=== PATIENT | male | born 2000 | race Caucasian/White ===

== ENCOUNTER 2019-12-24 06:44 | Outpatient (CLI) | payer BC, OTHER ==
[2019-12-24 10:47] LABS: #Eosinphils 0.3 thou/uL (0.0-0.7); #Lymphocytes 1.4 thou/uL (1.20-3.40); #Monocytes 0.4 thou/uL (0.11-0.59); #Neutrophils 3.5 thou/uL (1.40-6.50); %Basophils 0.4 % (0.0-1.0); %Eosinophils 5.8 % (0.0-10.0); %Lymphocytes 24.6 % (28.0-48.0); %Monocytes 7.6 % (0.0-4.0); %Neutrophils 61.6 % (31.0-61.0); Mean Corpuscular HGB CONC 32.7 g/dL (32.0-36.0); Mean Corpuscular Hemoglobin 28.8 pg (25.0-35.0); Mean Corpuscular Volume 87.8 fL (78.0-98.0); Platelet Count 175 thou/uL (130-400); White Blood Cell (WBC) Count 5.6 thou/uL (4.8-10.8)
[2019-12-24 11:15] LABS: Anion Gap 12 mmol/L (10-20); BUN (Urea Nitrogen) 18 mg/dL (8.9-20.6); Calc. Creatinine Clearance 0 mL/min (70-130); Calcium 9.5 mg/dL (7.8-10.44); Carbon Dioxide 24 mmol/L (22-29); Chloride 108 mmol/L (98-107); Estimated GFR-MDRD 78; Glucose 100 mg/dL (70-105); Sodium 140 mmol/L (136-145)
[2019-12-24 22:20] LABS: SARS-CoV-2 MS2 Positive; SARS-CoV-2 N Gene Negative; SARS-CoV-2 S Gene Negative; SARS-CoV-2 orf1ab Negative
== END 2019-12-24 06:45 | disposition home or self-care (01) ==
LOC: LABBT 06:44
PROVIDERS: ATTEND Specialist
DX: Z01.812 Encounter for preprocedural laboratory examination (principal); Z20.828 Contact with and (suspected) exposure to other viral communicable diseases; L98.8 Other specified disorders of the skin and subcutaneous tissue
CPT/HCPCS: 80048; 85025; 87635; U0003

== ENCOUNTER 2019-12-27 09:49 | Day surgery (SDC) | payer BC ==
[2019-12-24 10:20] VITALS: BMI 33.0
[2019-12-27] MEDS ORDERED: Acetaminophen 500 MG TAB ONE (10:30)
[2019-12-27] MEDS ORDERED: Ketorolac Tromethamine 30 MG/ML VIAL ONE (11:04)
[2019-12-27] MEDS ORDERED: Bupivacaine 0.25% HCL 30 ML VIAL ONE (11:47)
[2019-12-27] MEDS ORDERED: Bacitracin Zinc Ointment 30 gm TUBE ONE (11:47)
[2019-12-27] MEDS ORDERED: Lidocaine 1% w/Epinephrine 1:100K 20 ML VIAL ONE (11:47)
[2019-12-27] MEDS ORDERED: Fentanyl 100 MCG/2 ML VIAL ONE (11:48)
[2019-12-27] MEDS ORDERED: Methylene Blue 50 MG/10 ML AMPUL ONE (11:50)
[2019-12-27] MEDS ORDERED: Midazolam HCl 2 mg/2 ml Vial ONE (12:40)
[2019-12-27] MEDS ORDERED: Succinylcholine Chloride 20 MG/ML 10 ml SYRINGE FS ONE (13:53)
[2019-12-27] MEDS ORDERED: PROPOFOL 200 MG/20 ML VIAL ONE (13:53)
[2019-12-27] MEDS ORDERED: Lidocaine 1% PF 5 ML VIAL ONE (13:53)
[2019-12-27] MEDS ORDERED: Rocuronium Bromide 10 MG/ML (10ML VIAL) ONE (13:53)
[2019-12-27] MEDS ORDERED: SUGAMMADEX SODIUM 200 MG/2 ML VIAL ONE (13:56)
[2019-12-27] MEDS ORDERED: Meperidine HCl/PF 25 MG/ML VIAL ONE (14:21)
--- NOTE | 2019-12-30 12:43 | OP ---
DATE OF PROCEDURE: 12/27/2019 PREOPERATIVE DIAGNOSIS: Draining pilonidal sinus. POSTOPERATIVE DIAGNOSIS: Draining pilonidal sinus. PROCEDURE PERFORMED: Pilonidal excision with complex layered closure. ANESTHESIA: General endotracheal. INDICATIONS: The patient is a 19-year-old white male. He has a draining area in his pilonidal region with appearance of pilonidal disease. He is taken to the operating room at this time for pilonidal excision. DESCRIPTION OF OPERATION: Informed consent was obtained. The patient was taken to the operating room, where general endotracheal anesthesia was obtained with the patient in supine position. He is rolled over to prone peg-knife position. Buttocks were taped apart, trimmed of hair, prepped with Betadine, draped in sterile fashion. Local anesthetic was infiltrated using a mixture of 1% lidocaine with epinephrine and 0.25% Marcaine. An elliptical incision was created with a narrow side on the patient's left and a wide side on the patient's right. The pilonidal pits were injected with mixture of methylene blue and peroxide. Dissection was carried through skin and subcutaneous tissue. It was carried around the pilonidal disease deeply and excised intact. Flaps were raised on the patient's right side in order to be able to pull this tissue over towards the left. The patient had a very deep gluteal cleft and I attempted to elevate this somewhat superiorly. This was also located significantly inferiorly and closer to the anus . Meticulous hemostasis was obtained with electrocautery. The wound was thoroughly infiltrated with further local anesthetic. It was closed in careful layers using interrupted sutures of 2-0 Vicryl to pull the flap from the right over to the left and to close it down to the deep tissue as well. The skin edges were then approximated with interrupted sutures of 2-0 nylon placed in a vertical mattress fashion. Some of the skin edges were then further approximated with interrupted sutures of 4-0 Prolene. Antibiotic ointment was placed and dry gauze dressing and mesh pants. There were no complications. The patient tolerated the procedure well, was taken to the recovery room in stable condition. Job ID: [id number]
== END 2019-12-27 16:35 | disposition home or self-care (01) ==
LOC: SDC 09:49
PROVIDERS: ATTEND Specialist
PROC: 0H98XZZ Drainage of Buttock Skin, External Approach (ICD-10-PCS; principal; 2019-12-27)
DX: L05.92 Pilonidal sinus without abscess (principal); Z88.2 Allergy status to sulfonamides
CPT/HCPCS: 88304; J0690; J1885; J2001; J2175; J2250; J2704; J3010; Q9968; S0020

== ENCOUNTER 2020-05-25 06:48 | Outpatient (CLI) | payer BC, OTHER ==
[2020-05-25 13:40] LABS: #Basophils 0.1 10x3/uL (0.0-0.2); #Eosinphils 0.2 10x3/uL (0.0-0.5); #Monocytes 0.7 10x3/uL (0.0-1.1); #Neutrophils 5.3 10x3/uL (1.5-8.4); %Basophils 0.8 % (0.0-2.0); %Lymphocytes 19.7 % (18.0-47.0); %Monocytes 8.7 % (0.0-10.0); %Neutrophils 66.7 % (40.0-75.0); Hemoglobin 17.9 g/dL (14.0-18.0); Mean Corpuscular HGB CONC 33.8 G/DL (32.0-36.0); Mean Corpuscular Volume 85.6 fl (80.0-100.0); Mean Platelet Volume 10.9 fl (7.4-10.4); Platelet Count 241 10x3/uL (130-400); RBC Distribution Width 11.9 % (11.5-14.5); Red Blood Cell (RBC) Count 6.18 10x6/uL (4.40-5.80); White Blood Cell (WBC) Count 7.9 10x3/uL (4.5-11.0)
[2020-05-25 13:58] LABS: Anion Gap 16 mmol/L (10-20); BUN (Urea Nitrogen) 12 mg/dL (8.9-20.6); Calc. Creatinine Clearance 0 mL/min (70-130); Calcium 9.5 mg/dL (7.8-10.44); Carbon Dioxide 21 mmol/L (22-29); Chloride 109 mmol/L (98-107); Estimated GFR-MDRD 83; Glucose 76 mg/dL (70-105); Potassium 4.7 mmol/L (3.5-5.1); Sodium 141 mmol/L (136-145)
[2020-05-26 12:09] LABS: SARS-CoV-2 MS2 Positive; SARS-CoV-2 N Gene Negative; SARS-CoV-2 S Gene Negative; SARS-CoV-2 by NAA Not Detected (NotDetected); SARS-CoV-2 orf1ab Negative
== END 2020-05-25 06:49 | disposition home or self-care (01) ==
LOC: LABBT 06:48
PROVIDERS: ATTEND Specialist
DX: Z01.812 Encounter for preprocedural laboratory examination (principal); Z20.828 Contact with and (suspected) exposure to other viral communicable diseases; L05.91 Pilonidal cyst without abscess
CPT/HCPCS: 80048; 85025; 87635; U0003

== ENCOUNTER 2020-05-28 12:21 | Day surgery (SDC) | payer BC ==
[2020-05-27 15:06] VITALS: BMI 33.7
[~2020-05-28 12:21] MED LIST: Lidocaine 1% PF 5 ML VIAL ONE; PROPOFOL 200 MG/20 ML VIAL ONE; Rocuronium Bromide 10 MG/ML (10ML VIAL) ONE
[2020-05-28] MEDS ORDERED: Acetaminophen 500 MG TAB ONE (12:29)
[2020-05-28] MEDS ORDERED: Ketorolac Tromethamine 30 MG/ML VIAL ONE (12:30)
[2020-05-28] MEDS ORDERED: Midazolam HCl 2 mg/2 ml Vial ONE ×2 (14:06→15:26)
[2020-05-28] MEDS ORDERED: Bupivacaine 0.25% HCL 30 ML VIAL ONE (14:18)
[2020-05-28] MEDS ORDERED: Bacitracin Zinc Ointment 30 gm TUBE ONE (14:18)
[2020-05-28] MEDS ORDERED: EPINEPHrine 1 MG/ML AMP ONE (14:18)
[2020-05-28] MEDS ORDERED: Methylene Blue 50 MG/10 ML AMPUL ONE (14:19)
[2020-05-28] MEDS ORDERED: Fentanyl 100 MCG/2 ML VIAL ONE ×2 (15:26→18:02)
[2020-05-28] MEDS ORDERED: SUGAMMADEX SODIUM 200 MG/2 ML VIAL ONE (15:26)
[2020-05-28] MEDS ORDERED: HYDROmorphone 0.5 MG/0.5 ML SYRINGE ONE (16:56)
[2020-05-28] MEDS ORDERED: Ondansetron PF 4 MG/2 ML Vial ONE (17:55)
[2020-05-28] MEDS ORDERED: Meperidine HCl/PF 25 MG/ML VIAL ONE (17:58)
[2020-05-28] MEDS ORDERED: HYDROcodone/Acetaminophen 5/325 mg Tablet ONE (18:54)
--- NOTE | 2020-05-29 13:33 | OP ---
DATE OF PROCEDURE: 05/28/2020 PREOPERATIVE DIAGNOSIS: Recurrent pilonidal disease. POSTOPERATIVE DIAGNOSIS: Recurrent pilonidal disease. PROCEDURE PERFORMED: Pilonidal excision with complex flap closure using z-plasty and drain placement. ANESTHESIA: General endotracheal. INDICATIONS FOR PROCEDURE: The patient is a 19-year-old white male. He had presented with ulcerative pilonidal disease excised and then closed several months ago. Unfortunately, due to a variety of factors, he had recurrence and never had complete healing of his wound. At this juncture, I would recommend excision with closure using z-plasty to minimize the depth of his dia cleft and to move the incisions off the midline. He is taken to the operating room at this time for this surgery. DESCRIPTION OF OPERATION: Informed consent was obtained. Patient was taken to the operating room where general endotracheal anesthesia obtained with the patient in supine position. He was then rolled over into prone peg-knife position. Buttocks were trimmed of hair, taped apart, and prepped with Betadine and draped in sterile fashion. The residual pilonidal disease was excised. The area that had opened was at the inferior aspect of the previous incision, which was unfortunately close to the anoderm. The excision removed the defect inferiorly, but went no further. I extended the incision superiorly down to an area of substantial indentation in the cleft. The tissue was removed intact using electrocautery and sharp dissection. All diseased or abnormal tissue was excised and passed off the field. The defect was approximately 8 cm in length. I then mapped out incisions, extended the patient's right and left from the midline incision. The right-sided incision went from the inferior aspect of the incision to the right at about a 60 degree angle from the midline. The left-sided incision extended from the superior aspect of the wound to the left and again was approximately a 60 degree flap. The flaps were raised bilaterally following the initial skin incision down to the gluteal fascia and elevating the skin and fatty tissue off the gluteal fascia in a full-thickness fashion. Both flaps were raised in a similar fashion. Meticulous hemostasis obtained with electrocautery. The wound was irrigated. All irrigant was aspirated. I then transposed the flaps, moving the upper flap inferiorly and the lower flap superiorly and following a z-plasty closure, the apices of the flaps were secured to the deep fatty tissue with interrupted sutures of 2-0 Vicryl. I then approximated the deep fatty tissue, all areas of flap communication with interrupted sutures of 2-0 Vicryl. Before closing the flaps, I had obtained a 19 round fluted drain, placed within the base of the wound and brought it out superiorly and to the right, where it was secured at the skin exit site with a 3-0 nylon suture. The skin edges were then approximated with interrupted sutures of 3-0 nylon. I placed corner stitches at the apices of the two flaps laterally. I closed the ends of the incision with interrupted sutures of 3-0 Vicryl placed in a vertical mattress fashion. I then ran the between these sutures with a running suture of 3-0 nylon. A sterile occlusive dressing was applied over the drain exit site, held in place with Mastisol. Antibiotic ointment and gauze dressings were applied over the incision site. All areas were nicely approximated without tension. The only area of concern is the superior aspect primarily because of its close proximity to the anoderm. I explained to the patient and his mother that it will be to keep this area clean. Job ID: [id number]
== END 2020-05-28 19:30 | disposition home or self-care (01) ==
LOC: SDC 12:21
PROVIDERS: ATTEND Specialist
PROC: 0HX8XZZ Transfer Buttock Skin, External Approach (ICD-10-PCS; principal; 2020-05-28)
PROC: 0HB8XZZ Excision of Buttock Skin, External Approach (ICD-10-PCS; principal; 2020-05-28)
DX: L05.91 Pilonidal cyst without abscess (principal); Z88.2 Allergy status to sulfonamides
CPT/HCPCS: 88304; J0171; J0690; J1170; J1885; J2175; J2250; J2405; J2704; J3010; Q9968; S0020